=== PATIENT | female | born 1975 | race Caucasian/White ===

== ENCOUNTER 2023-05-15 14:45 | Emergency (ER) | payer OTHER, SELFPAY ==
[2023-05-15 14:49] VITALS: BP 103/79; PULSE 84; RESP 22; TEMP 36; O2SAT 99; BMI 21.6
--- NOTE | 2023-05-15 15:22 | EX.ED.DYSGE1 ---
HPI History of Present Illness Chief Complaint: Allergic Reaction Informant: patient Narrative Narrative: Patient presents after reaction after receiving her first ever iron infusion. Patient has a history of carcinoid tumor of colon. She has had a couple surgeries. Because of this she has poor absorption. She has had problems with anemia from iron deficiency. They were giving her an iron infusion. This is the first time she is ever had this. She states they had to poke her left arm about 6 times before they got the IV. She was then given the full iron infusion. She was waiting afterwards for a 30-minute time. When she started to get some swelling of the left arm where the IV had been. She started to get achy joints. She is not having dyspnea now. She might of felt a little funny in her tongue or lips but they are not swelling. She takes Benadryl regularly. The nursing note states that she received 50 of Benadryl over there. I talked about steroids patient thinks they might have given her steroids possibly a drug that started with the letter D. Decadron was not recognized. She states it could have been dexamethasone when I say that but were not sure. I have talked to staff members here. I have looked for a report from the transferring facility. I cannot find that. I will give her a dose of steroids and we will still try to attempt to get detailed information on what care was provided before transfer to the emergency department. I will give Pepcid and some IV fluids. Patient has no history of reaction to iron. 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 She also reacts to several other meds mostly narcotics. But she is not having hives at this time. [facility] Home Medications prednisone 20 mg tablet 60 mg (3 x 20 mg) PO DAILY #15 TABLETS 05/15/23 [Rx Last Taken Unknown] Allergy/AdvReac Type Severity Reaction Status Date / Time acetaminophen [From Vicodin] Allergy HIVES, Verified 05/15/23 14:49 RASH, SWELLNG codeine Allergy Hives Verified 05/15/23 14:49 hydrocodone [From Vicodin] Allergy HIVES, Verified 05/15/23 14:49 RASH, SWELLNG Iodinated Contrast Media Allergy Anaphylaxis Verified 05/15/23 14:49 Penicillins Allergy Hives Verified 05/15/23 14:49 Social History Smoking Status: Never smoker ROS ROS ED ROS Narrative A complete review of systems was performed and is negative except as documented in the history of present illness. Some specific details below. Constitutional: No recent fevers or chills. EYE: No discharge, visual complaints, or pain. No swelling of lids. ENT: No difficulty swallowing. No swelling. No pain. No reflux symptoms. She did have some mild tingling or lip tongue sensation but no swelling. CV: No chest pain or palpitations. Respiratory: Patient is not short of breath or coughing. GI: No abdominal pain. No nausea vomiting diarrhea. No blood in stool. : No frequency dysuria or hematuria. Musculoskeletal: No recent trauma. She does have some swelling of her left hand and forearm area. Its not clear if this is from infusion or reaction. But her IV for infusion is actually much more proximal than the swelling and she does not have swelling where the IV is placed. I think this is more likely a reaction to the iron infusion rather than an extra vacation. She also has some arthralgias mostly of large joints which is new after this reaction started. No swelling of those joints though. Skin: Mild itching but no rash. Neuro: No weakness or numbness. Endocrine: No polyuria or polydipsia. EXAM Physical Exam Narrative Exam Narrative: CONSTITUTIONAL: Patient is nontoxic in appearance. The patient looks comfortable. Work of breathing looks normal. When I walk in the room she looks nontoxic. She is pleasant. I see no hives or swelling initially. She carries on normal conversation. HEENT: No notable trauma. Mucous membranes moist. No sinus tenderness. No indication of pain with swallowing. No swelling. Normal overall mucous membranes. No change in voice. EYES: No conjunctival injection. No proptosis. No lid swelling or facial swelling NECK:No JVD. No stridor. CARDIOVASCULAR: Regular rate. Regular rhythm. No notable murmur. No JVD. RESPIRATORY: No respiratory distress. Breathing is unlabored. No wheezes. No rhonchi. No rales. No pain with a deep breath. No chest wall tenderness. GASTROINTESTINAL: Not distended. Bowel sounds are normal. No tenderness. GENITOURINARY: No CVA tenderness. MUSCULOSKELETAL: IV is in her left antecubital area. She does have some swelling around the left wrist and hand area. But not swelling near where the IV is placed. Although she states she has aching in her joints. She is able to move her joints [id number]. Even the knees that she says she aches she can move up and down fully extend and bend over 90 degrees. There is no effusion. NEUROLOGICAL: Patient is alert and appropriate. No focal deficit noted. SKIN: No noted rashes. No diaphoresis. No hives seen. PSYCHIATRIC: Patient is calm. Mood is appropriate. Const Vital Signs: 05/15/23 14:49 Temperature 96.8 F L Temperature Source Oral Pulse Rate 84 Respiratory Rate 22 H Blood Pressure 103/79 Blood Pressure Mean 87 Pulse Ox 99 Oxygen Delivery Method Room Air MDM MDM MDM Narrative Medical decision making narrative: We are trying to obtain information on what medicines were provided prior to the patient's arrival. I do think she is having a reaction to this. Since she is routinely on Benadryl, I will give Pepcid. I would like to give steroids. I do not know when we will get information on what meds were given so I will give a dose of steroids here. I would rather have a duplication then no meds given. I have talked to nursing staff. I talked to engineering secretary. We are trying to reach the facility to get information on what care was provided prior to arrival. I was able to reach the facility and find out she got 50 of Benadryl and 100 of Solu-Medrol. I will add Pepcid. I have stopped the Solu-Medrol here. I rechecked the patient. She is having nausea. She wants something for pain because her joints hurt. She states she feels like the breathing is just a little bit off and tight. But she carries on normal conversation. She is still not wheezing. Airway looks very patent. Her voice is clear. No wheezing. I will get chest x-ray. I will do some basic blood work. We will watch her bit longer here. Independent interpretation of her single view chest x-ray shows no acute process. No pneumothorax. No cardiomegaly. No infiltrate or signs of edema. Final reading is similar. Patient's electrolytes show no marked abnormalities. Glucose was also well controlled. Patient finally got significantly better. Her heart rate came down a little bit. Her breathing was easy. She just felt better. Her joints were not hurting. This may have been a fish pain reaction. She is on Benadryl anyway. We will have her take Pepcid for about 5 days and we discussed this with her. I will add prednisone. She will discuss repeat iron therapy in the future with possible pretreatment with her primary physician. Lab Data Attestation: I reviewed the patient's lab results. Labs: Laboratory Results - last 24 hr 05/15/23 16:25 WBC 8.8 RBC 4.75 Hgb 13.5 Hct 43.0 MCV 90.5 MCH 28.4 MCHC 31.4 L RDW Std Deviation 45.1 H RDW Coeff of Brett 13.5 Plt Count 409 MPV 8.8 Immature Gran % (Auto) 0.600 Neut % (Auto) 85.4 H Lymph % (Auto) 10.5 L [place] % (Auto) 2.7 Eos % (Auto) 0.2 Baso % (Auto) 0.6 Absolute Neuts (auto) 7.5 Absolute Lymphs (auto) 0.92 Nucleated RBC % 0 Sodium 137 Potassium 4.4 Chloride 107 Carbon Dioxide 23.0 Anion Gap 7 BUN 10 Creatinine 0.93 Estim Creat Clear Calc 70.01 Est GFR (MDRD) Af Amer 83 Est GFR (MDRD) Non-Af 68 BUN/Creatinine Ratio 10.8 Glucose 98 Calcium 8.1 L Radiography Diagnostic Testing: Clinical Impression(s) from Imaging Studies Chest X-Ray 05/15/23 16:12 IMPRESSION: No radiographic evidence of acute cardiopulmonary disease. Electronically Signed: Ramonita Currie MD at 16:46 EDT Reading Location ID and State: [id number] / Tel , Service support , Discharge Plan Triage Chief Complaint: Allergic Reaction ED Provider: Kelvin Harrington Dx/Rx/DC Orders Clinical Impression: Arthralgia, Allergic drug reaction, Iron adverse reaction Instructions: ED ADVERSE DRUG REACTION Allergic Prescriptions: New prednisone 20 mg tablet 60 mg PO DAILY Qty: 15 0RF Primary Care Provider: Evaristo Jones Referrals: Evaristo Jones DO [Primary Care Provider] - 3-5 Days Disposition Disposition: Home, Self Care
[2023-05-15] MEDS: Famotidine 200 MG/20 ML MDV 20 MG in 0.9% Normal Saline (Pres. free 8 ML 300 MG IV (15:35)
[2023-05-15] MEDS: Ondansetron 4 MG/2 ML Vial IV (16:09)
[2023-05-15] MEDS: Ketorolac 15 MG/ML Vial IV (16:09)
--- NOTE | 2023-05-15 16:12 | RAD_ITS ---
INDICATION: SOB EXAMINATION/TECHNIQUE: X-RAY - XR Chest 1 View COMPARISON: FINDINGS: LINES/DEVICES: None. LUNGS: No consolidation, edema or effusion. No pneumothorax. MEDIASTINUM AND CARDIOVASCULAR STRUCTURES: Cardiac silhouette not enlarged. Central airways and mediastinal contour are unremarkable. BONES AND SOFT TISSUES: Unremarkable. RAD/Chest 1 View (Portable) IMPRESSION: No radiographic evidence of acute cardiopulmonary disease. Electronically Signed: Ramonita Currie MD at 16:46 EDT Reading Location ID and State: [id number] / Tel , Service support ,
[2023-05-15 16:38] LABS: Absolute Lymphocyte Count 0.92 X10^3/uL (0.83-4.51); Absolute Neutrophil Count 7.5 X10^3/uL (2.0-7.7); Basophil# 0.05 X10^3/uL; Basophil% 0.6 % (0-1); Eosinophil# 0.02 X10^3/uL; Eosinophils% 0.2 % (0-5); Hemoglobin 13.5 g/dL (12.0-15.0); Lymphocyte # 0.92 X10^3/ul (0.83-4.51); Lymphocyte % 10.5 % (19-41); Mean Corp Hgb Conc 31.4 g/dL (32-36); Mean Corpuscular Hgb 28.4 pg (27.0-32.0); Mean Corpuscular Volume 90.5 fL (81-99); Mean Platelet Vol. 8.8 fl (6.2-12.0); Monocyte# 0.24 X10^3/uL; Monocyte% 2.7 % (0-10); NRBC Flagged by Analyzer 0 % (0-5); Neutrophil % 85.4 % (47-70); Platelet Count 409 K/mm3 (150-450); RBC Distribution Width CV 13.5 % (11.6-14.6); RBC Distribution Width SD 45.1 fl (35.1-43.9); Red Blood Count 4.75 M/mm3 (4.2-5.4); White Blood Count 8.8 K/mm3 (4.4-11.0)
[2023-05-15 16:57] LABS: Anion Gap 7 (5-15); BUN 10 mg/dL (7-18); BUN/Creat Ratio 10.8 RATIO (10-20); Calcium,Total 8.1 mg/dL (8.5-10.1); Chloride 107 mmol/L (98-107); Creatinine, Serum 0.93 mg/dL (0.55-1.02); EST Glomerular Filtration Rate 68 mL/min (>60); Est Glom Filt Rate - Afr Amer 83 mL/min (>60); Estimated Creatinine Clearance 70.01 ml/min; Glucose 98 mg/dL (74-106); Potassium 4.4 mmol/L (3.5-5.1); Sodium Level 137 mmol/L (136-145)
[2023-05-15 18:10] VITALS: PULSE 75; RESP 17
--- NOTE | 2023-05-15 18:25 | EX.ED.DYSGE1 ---
HPI History of Present Illness Chief Complaint: Allergic Reaction [facility] Home Medications prednisone 20 mg tablet 60 mg (3 x 20 mg) PO DAILY #15 TABLETS 05/15/23 [Rx Last Taken Unknown] Allergy/AdvReac Type Severity Reaction Status Date / Time acetaminophen [From Vicodin] Allergy HIVES, Verified 05/15/23 14:49 RASH, SWELLNG codeine Allergy Hives Verified 05/15/23 14:49 hydrocodone [From Vicodin] Allergy HIVES, Verified 05/15/23 14:49 RASH, SWELLNG Iodinated Contrast Media Allergy Anaphylaxis Verified 05/15/23 14:49 Penicillins Allergy Hives Verified 05/15/23 14:49 Social History Smoking Status: Never smoker EXAM Physical Exam Const Vital Signs: 05/15/23 14:49 05/15/23 18:10 Temperature 96.8 F L Temperature Source Oral Pulse Rate 84 75 Respiratory Rate 22 H 17 Blood Pressure 103/79 Blood Pressure Mean 87 Pulse Ox 99 Oxygen Delivery Method Room Air Room Air MDM MDM Lab Data Labs: Laboratory Results - last 24 hr 05/15/23 16:25 WBC 8.8 RBC 4.75 Hgb 13.5 Hct 43.0 MCV 90.5 MCH 28.4 MCHC 31.4 L RDW Std Deviation 45.1 H RDW Coeff of Brett 13.5 Plt Count 409 MPV 8.8 Immature Gran % (Auto) 0.600 Neut % (Auto) 85.4 H Lymph % (Auto) 10.5 L [place] % (Auto) 2.7 Eos % (Auto) 0.2 Baso % (Auto) 0.6 Absolute Neuts (auto) 7.5 Absolute Lymphs (auto) 0.92 Nucleated RBC % 0 Sodium 137 Potassium 4.4 Chloride 107 Carbon Dioxide 23.0 Anion Gap 7 BUN 10 Creatinine 0.93 Estim Creat Clear Calc 70.01 Est GFR (MDRD) Af Amer 83 Est GFR (MDRD) Non-Af 68 BUN/Creatinine Ratio 10.8 Glucose 98 Calcium 8.1 L Radiography Diagnostic Testing: Clinical Impression(s) from Imaging Studies Chest X-Ray 05/15/23 16:12 IMPRESSION: No radiographic evidence of acute cardiopulmonary disease. Electronically Signed: Ramonita Currie MD at 16:46 EDT , Discharge Plan Triage Chief Complaint: Allergic Reaction ED Provider: Kelvin Harrington Dx/Rx/DC Orders Clinical Impression: Arthralgia, Allergic drug reaction, Iron adverse reaction Instructions: ED ADVERSE DRUG REACTION Allergic Prescriptions: New prednisone 20 mg tablet 60 mg PO DAILY Qty: 15 0RF Primary Care Provider: Evaristo Jones Referrals: Evaristo Jones DO [Primary Care Provider] - 3-5 Days Disposition Disposition: Home, Self Care
== END 2023-05-15 18:20 | disposition home or self-care (01) ==
PROVIDERS: Emergency Provider Emergency Medicine; PCP Student in an Organized Health Care Education/Training Program; Visit Provider Emergency Medicine
DX: M79.89 Other specified soft tissue disorders (principal); M25.50 Pain in unspecified joint; T45.4X5A Adverse effect of iron and its compounds, initial encounter; R11.0 Nausea; D50.9 Iron deficiency anemia, unspecified; Z91.041 Radiographic dye allergy status
CPT/HCPCS: 71045; 80048; 85025; 96365; 96375; 99283; J7040; A4216; J2405; J3490